=== PATIENT | female | born 2005 | race Caucasian/White ===

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

== ENCOUNTER 2024-06-22 23:21 | Emergency (ER) | payer SELFPAY ==
[2024-06-22] MEDS: Ondansetron 4 MG Tab.DIS PO ONE (23:40)
[2024-06-23 00:22] LABS: APPEARANCE,URINE CLEAR (CLEAR); BILIRUBIN,URINE NEGATIVE (NEGATIVE); COLOR,URINE YELLOW (YELLOW); GLUCOSE,URINE NEGATIVE (NEGATIVE); KETONES,URINE NEGATIVE (NEGATIVE); LEUKOCYTE ESTERASE,URINE NEGATIVE (NEGATIVE); NITRITE,URINE NEGATIVE (NEGATIVE); OCCULT BLOOD,URINE NEGATIVE (NEGATIVE); PH,URINE 6.5 (5.0-9.0); PROTEIN,URINE NEGATIVE (NEGATIVE); UROBILINOGEN,URINE 0.2 mg/dL (0.2-1.0)
== END 2024-06-23 00:38 | disposition home or self-care (01) ==
LOC: DL.ED 23:21
DX: R11.2 Nausea with vomiting, unspecified (principal); T38.0X5A Adverse effect of glucocorticoids and synthetic analogues, initial encounter
CPT/HCPCS: 81003; 81025; 99284; A9270

== ENCOUNTER 2024-11-10 21:05 | Emergency (ER) | payer OTHER ==
[2024-11-10] MEDS: Lidocaine 1% 30 ML SDV INJECT ONE (21:37)
[2024-11-10] MEDS: Take Home: Acetaminophen/HYDROcodone 325-5 MG, 5 Tab Pack PO ONE (22:33)
[2024-11-10] MEDS: Take Home: Cephalexin 500 MG Cap, 6 Cap Pack PO ONE (22:33)
[2024-11-10] MEDS: Bacitracin Oint 1 GM U/D Packet TOP ONE (22:39)
== END 2024-11-10 22:42 | disposition home or self-care (01) ==
LOC: DL.ED 21:05
DX: L03.032 Cellulitis of left toe (principal); L60.0 Ingrowing nail
CPT/HCPCS: 11730; 99282; 99283-25; A9270-GY; J2003

== ENCOUNTER 2024-12-25 23:42 | Emergency (ER) | payer OTHER ==
[2024-12-26] MEDS: Take Home: Acetaminophen/HYDROcodone 325-5 MG, 5 Tab Pack PO ONE (00:46)
[2024-12-26] MEDS: Take Home: Amoxicillin/Clavulanate K 875-125 MG Tab, 6 Tab Pack PO ONE (00:46)
== END 2024-12-26 01:05 | disposition home or self-care (01) ==
LOC: DL.ED 23:42
DX: J03.90 Acute tonsillitis, unspecified (principal); Z79.899 Other long term (current) drug therapy
CPT/HCPCS: 87081; 87430; 99283; A9270; J8540